=== PATIENT | male | born 1990 | race Caucasian/White ===

== ENCOUNTER 2020-03-13 23:55 | Emergency (ER) | payer OTHER ==
[~2020-03-13] VITALS: Ht 188 cm; Wt 83.1 kg
[2020-03-14 00:10] VITALS: Ht 188 cm; Wt 83.1 kg
[2020-03-14 01:08] VITALS: BP 157/85
== END 2020-03-14 01:08 | disposition home or self-care (01) ==
LOC: ED 23:55
DX: T22.212A Burn of second degree of left forearm, initial encounter (principal); T31.0 Burns involving less than 10% of body surface; Z88.2 Allergy status to sulfonamides; Z88.1 Allergy status to other antibiotic agents; X10.1XXA Contact with hot food, initial encounter; Y93.89 Activity, other specified; Y92.89 Other specified places as the place of occurrence of the external cause; Y99.8 Other external cause status
CPT/HCPCS: 90715; J2270; Q0162